=== PATIENT | female | born 1950 | race Caucasian/White ===

== ENCOUNTER → 2018-01-02 | Outpatient (CLI) | payer OTHER ==
[~2018-01-02] VITALS: Ht 160 cm; Wt 49.0 kg
[~2018-01-02] MED LIST: ADAPALENE45 G1 TP; CLARITIN10 M3 PO; DEXILANT30 MG PO; LOTEMAX5 ML LEFT EYE; MOTRIN600 MG PO; VIACTIV SOFT C1 EACH PO; VITAMIN D31000 UNIT PO; ZANTAC150 MG PO; ZESTRIL20 MG PO
[2018-01-02 10:27] VITALS: BP 132/67
== END | disposition home or self-care (01) ==
LOC: IVINF 10:00
DX: M85.80 Other specified disorders of bone density and structure, unspecified site (principal); M81.0 Age-related osteoporosis without current pathological fracture
CPT/HCPCS: 96365; J3489